=== PATIENT | female | born 1990 | race Caucasian/White ===

== ENCOUNTER → 2020-11-19 16:12 | Outpatient (CLI) | payer OTHER, SELFPAY ==
[2020-11-19 17:56] LABS: Cancer Antigen 125 < 5.5 U/mL (0-35)
[2020-11-22 10:31] LABS: Human Epididymis Prot 4 40.9 pmol/L (0.0-61.2)
== END ==
PROVIDERS: PCP Physician Assistant; Referring Provider Obstetrics & Gynecology; Visit Provider Obstetrics & Gynecology
DX: N83.202 Unspecified ovarian cyst, left side (principal)
CPT/HCPCS: 36415; 86304; 86305